=== PATIENT | female | born 1940 | race Caucasian/White ===

== ENCOUNTER 2018-07-04 22:29 | Inpatient (IN) | payer MEDICARE, OTHER ==
[~2018-07-04] VITALS: Ht 165.1 cm; Wt 144.7 kg
--- OUTSIDE RECORDS SUMMARY | ~2018-07-04 | XMS | Clinical Summary ---
Demographics + + + | Address | [id number] | | | [place] [address] | + + + | Home Phone | | + + + | Preferred Language | Unknown | + + + | Marital Status | Single | + + + | Restorationist Affiliation | [id number] | + + + | Race | Unknown | + + + | Ethnic Group | Unknown | + + + Author + + + | Author | [facility] | | | and [place] | + + + | Organization | [facility] | | | and [place] | + + + | Address | Unknown | + + + | Phone | Unavailable | + + + Support + + +---------+ + | Name | Relationship | Address | Phone | + + +---------+ + | Cahndan Monaco | ECON | Unknown | | + + +---------+ + | RennerJuan markham | ECON | Unknown | | + + +---------+ + | Fabrice Monaco | ECON | Unknown | | + + +---------+ + Care Team Providers + +------+ + | Care Recreation Adviser Name | Role | Phone | + +------+ + | Marissa Leonard MD | PP | | + +------+ + Allergies + + + + + + | Active Allergy | Reactions | Severity | Noted | Comments | | | | | Date | | + + + + + + | Codeine | Nausea And Vomiting | | 11/11/19 | | | | | | 18 | | + + + + + + | Iodine | Other (See Comments) | | 11/11/19 | "I didn' t look | | | | | 18 | good". | + + + + + + | Penicillins | Hives | | 11/11/19 | | | | | | 18 | | + + + + + + | Sulfa Antibiotics | Other (See Comments) | | 11/11/19 | abd pain | | | | | 18 | | + + + + + + Medications + + + +---------+------+------+-------+ | Medication | Sig | Dispensed | Refills | Star | End | Statu | | | | | | t | Date | s | | | | | | Date | | | + + + +---------+------+------+-------+ | metFORMIN | Take 500 mg by mouth | | 0 | | | Activ | | (GLUCOPHAGE) 500 mg | daily (with | | | | | e | | tablet | breakfast). | | | | | | + + + +---------+------+------+-------+ | quinapril | Take by mouth | | 0 | | | Activ | | (ACCUPRIL) 20 mg | Daily. | | | | | e | | tablet | | | | | | | + + + +---------+------+------+-------+ | levothyroxine | Take 75 mcg by mouth | | 0 | | | Activ | | (SYNTHROID) 75 MCG | every morning | | | | | e | | tablet | (before breakfast). | | | | | | + + + +---------+------+------+-------+ | furosemide (LASIX) | Take by mouth | | 0 | | | Activ | | 20 mg tablet | Daily. | | | | | e | + + + +---------+------+------+-------+ | clindamycin | Take by mouth | | 0 | | | Activ | | (CLEOCIN) 75 mg | Daily. | | | | | e | | capsule | | | | | | | + + + +---------+------+------+-------+ | aMILoride | Take 5 mg by mouth | | 0 | | | Activ | | (MIDAMOR) 5 mg | Daily. | | | | | e | | tablet | | | | | | | + + + +---------+------+------+-------+ | Apixaban (ELIQUIS | Take by mouth. | | 0 | | | Activ | | PO) | | | | | | e | + + + +---------+------+------+-------+ Active Problems Not on file Social History + +-------+ +--------+ + | Tobacco Use | Types | Packs/Day | Years | Date | | | | | Used | | + +-------+ +--------+ + | Former Smoker | | | | Quit: 1980 | + +-------+ +--------+ + + +---+---+---+ | Smokeless Tobacco: | | | | | Never Used | | | | + +---+---+---+ + + +---------+ + | Alcohol Use | Drinks/We | oz/Week | Comments | | | ek | | | + + +---------+ + | Yes | 14 | 8.4 | | | | Shots of | | | | | liquor | | | + + +---------+ + + + + | Sex Assigned at | Date Recorded | | | | + + + | Not on file | | + + + + + + + | Job Start Date | Occupation | Industry | + + + + | Not on file | Not on file | Not on file | + + + + + + + + | Travel History | Travel Start | Travel End | + + + + + + | No recent travel history available. | + + Last Filed Vital Signs + + + + | Vital Sign | Reading | Time Taken | + + + + | Blood Pressure | 132/69 | 11/10/2017 1730 PDT | + + + + | Pulse | 100 | 11/10/2017 1730 PDT | + + + + | Temperature | - | - | + + + + | Respiratory Rate | 21 | 11/10/20171729 PDT | + + + + | Oxygen Saturation | 94% | 11/10/20171729 PDT | + + + + | Inhaled Oxygen | - | - | | Concentration | | | + + + + | Weight | 160.1 kg (353 lb) | 11/10/20171503 PDT | + + + + | Height | 160 cm (5' 3") | 11/10/20171503 PDT | + + + + | Body Mass Index | 62.53 | 11/10/20171503 PDT | + + + + Plan of Treatment + + + + + | Health Maintenance | Due Date | Last Done | Comments | + + + + + | Vaccine: | | | | | Dtap/Tdap/Td (1 - | 9 | | | | Tdap) | | | | + + + + + | Vaccine: Zoster (1 | | | | | of 2) | 0 | | | + + + + + | Vaccine: | | | | | Pneumococcal 65+ | 5 | | | | Low/Medium Risk (1 | | | | | of 2 - PCV13) | | | | + + + + + | Adult Annual | | | | | Wellness Visit | 8 | | | + + + + + | Vaccine: Influenza | | | | | (Season Ended) | 9 | | | + + + + + Results Not on filefrom Last 3 Months Insurance + +--------+ +--------+ +---------+--------+ | Payer | Benefi | Subscriber | Effect | Phone | Address | Type | | | t Plan | ID | lang | | | | | | / | | Dates | | | | | | Group | | | | | | + +--------+ +--------+ +---------+--------+ | MEDICARE | MEDICA | [id number] | | [phone] | | Medica | | | RE | | 005-Pr | 5 | | re | | | PART A | | esent | | | | | | AND B | | | | | | + +--------+ +--------+ +---------+--------+ | INDIVIDUAL ASSURANCE | INDIVI | [id number] | | | | Indemn | | COMPANY | DUAL | | 016-Pr | | | ity | | | ASSURA | | esent | | | | | | NCE CO | | | | | | | | MDCR | | | | | | | | SUPPL | | | | | | + +--------+ +--------+ +---------+--------+ + +--------+ +--------+ + + | Guarantor Name | Accoun | Relation to | Date | Phone | Billing Address | | | t Type | Patient | of | | | | | | | | | | + +--------+ +--------+ + + | Amarilis Bryan | Person | Self [birth year] | [id number] | | | al/Fam | | 1940 | [phone] | [place] [address] | | | guille | | | 3 (Home) | | + +--------+ +--------+ + + Advance Directives Patient has advance care planning documents on file. For more information, please contact:[place] [address]
--- OUTSIDE RECORDS SUMMARY | ~2018-07-04 | XMS | Clinical Summary ---
Demographics + + + | Address | [id number] | | | [place] [address] | + + + | Home Phone | | + + + | Preferred Language | Unknown | + + + | Marital Status | Single | + + + | Sabianism Affiliation | 1009 | + + + | Race | Unknown | + + + | Ethnic Group | Unknown | + + + Author + + + | Author | [facility] | | | and [place] | + + + | Organization | [facility] | | | and [place] | + + + | Address | Unknown | + + + | Phone | Unavailable | + + + Support + + +---------+ + | Name | Relationship | Address | Phone | + + +---------+ + | Chandan Monaco | ECON | Unknown | | + + +---------+ + | RennerJuan markham | ECON | Unknown | | + + +---------+ + | Fabrice Monaco | ECON | Unknown | | + + +---------+ + Care Team Providers + +------+ + | Care Dicer Operator Name | Role | Phone | + [...] +--------+ +---------+--------+ | MEDICARE | MEDICA | [id number] | | [phone] | | Medica | | | RE | | 005-Pr | 5 | | re | | | PART A | | esent | | | | | | AND B | | | | | | + +--------+ +--------+ +---------+--------+ | INDIVIDUAL ASSURANCE | INDIVI | [id number] | | | | Indemn | | [...] | Self | [birth year] | [address]ANK [id number] AUDIOLOGY TECHNICIAN | | | al/Fam | | 1940 | [phone] | [place] [address] | | | guille | | | 3 (Home) | | + +--------+ +--------+ + + Advance Directives Patient has advance care planning documents on file. For more information, please contact:[facility] [place] [address]
--- OUTSIDE RECORDS SUMMARY | ~2018-07-04 | XMS | Clinical Summary ---
Demographics + + + | Address | [address] | | | [place] [address] | + + + | Home Phone | | + + + | Preferred Language | Unknown | + + + | Marital Status | | + + + | Latter Day Affiliation | Unknown | + + + | Race | Unknown | + + + | Ethnic Group | Unknown | + + + Author + + + | Author | [facility] | + + + | Organization | [id number] | + + + | Address | Unknown | + + + | Phone | Unavailable | + + + Support + + +---------+ + | Name | Relationship | Address | Phone | + + +---------+ + | Fabrice Bryan | ECON | Unknown | | + + +---------+ + | Juan Renner | ECON | Unknown | | + + +---------+ + Care Team Providers + +------+ + | Care Repair Servicer Name | Role | Phone | + +------+ + | Marissa Smith PA-C | PP | Unavailable | + +------+ + Allergies + + + + + + | Active Allergy | Reactions | Severity | Noted | Comments | | | | | Date | | + + + + + + | Bee Venom | Swelling | Medium | 10/14/19 | | | | | | 14 | | + + + + + + | Codeine | Nausea and Vomiting | Low | 10/14/19 | | | | | | 14 | | + + + + + + | Penicillins | Swelling | Medium | 10/14/19 | | | | | | 14 | | + + + + + + | Propafenone | Other (See Comments) | Medium | 09/10/19 | sweating | | | | | 17 | | + + + + + + | Sulfa Antibiotics | Nausea Only | Low | 01/27/20 | | | | | | 14 | | + + + + + + Current Medications + + +-------+---------+------+------+-------+ | Prescription | Sig. | Disp. | Refills | Star | End | Statu | | | | | | t | Date | s | | | | | | Date | | | + + +-------+---------+------+------+-------+ | tizanidine | Take 4 mg by mouth | | | | | Activ | | (ZANAFLEX) 4 MG | nightly. | | | | | e | | capsule | | | | | | | + + +-------+---------+------+------+-------+ | quinapril | Take 20 mg by mouth | | | | | Activ | | (ACCUPRIL) 20 MG | nightly. | | | | | e | | tablet | | | | | | | + + +-------+---------+------+------+-------+ | levothyroxine | Take 75 mcg by mouth | | | | | Activ | | (SYNTHROID) 75 MCG | every morning | | | | | e | | tablet | before breakfast. | | | | | | + + +-------+---------+------+------+-------+ | metFORMIN | Take 500 mg by mouth | | | | | Activ | | (GLUCOPHAGE) 500 MG | daily. | | | | | e | | tablet | | | | | | | + + +-------+---------+------+------+-------+ | amLODIPine | Take 10 mg by mouth | | | | | Activ | | (NORVASC) 10 MG | daily. | | | | | e | | tablet | | | | | | | + + +-------+---------+------+------+-------+ | nitroGLYCERIN | Place 0.4 mg under | | | | | Activ | | (NITROSTAT) 0.4 MG | the tongue every 5 | | | | | e | | SL tablet | (five) minutes as | | | | | | | | needed for Chest | | | | | | | | pain. | | | | | | + + +-------+---------+------+------+-------+ | polyethylene | Take 17 g by mouth | | | | | Activ | | glycol (GLYCOLAX) | daily. | | | | | e | | packet | | | | | | | + + +-------+---------+------+------+-------+ | potassium chloride | Take 20 mEq by mouth | | | | | Activ | | (KLOR-CON) 20 MEQ | 2 (two) times | | | | | e | | packet | daily. | | | | | | + + +-------+---------+------+------+-------+ | apixaban (ELIQUIS) | Take 5 mg by mouth 2 | | | | | Activ | | 5 MG tablet | (two) times daily. | | | | | e | + + +-------+---------+------+------+-------+ | furosemide (LASIX) | Take 40 mg by mouth | | | | | Activ | | 40 MG tablet | 2 (two) times daily. | | | | | e | + + +-------+---------+------+------+-------+ | spironolactone | Take 25 mg by mouth | | | | | Activ | | (ALDACTONE) 25 MG | daily. | | | | | e | | tablet | | | | | | | + + +-------+---------+------+------+-------+ Active Problems + + + | Problem | Noted Date | + + + | Atrial fibrillation (HCC) | 10/13/2013 | + + + + + | Last Assessment & Plan: Atrial fibrillation. 75yo WF, with | | atrial fibrillation, apparently did not tolerate the Eliquis, | | refuses to be on warfarin or aspirin. She did not tolerate the | | propafenone. Currently on no antiarrhythmics, no | | anticoagulation, no antiplatelet agents. She reports generalized | | weakness, extremely poor balance, most the time she is in a | | wheelchair. Since last seen, one year ago, no surgical | | procedures or hospitalizations. Tolerating current medications. | | She requests no change in therapy. Has upcoming visit with PCP, | | labs anticipated.Last Cath: naLast Echo, 11/22/2013: TDS, LVEF | | grossly NML, "some degree of MT/TR".Last Stress Test: naECG, | | 11/24/2013 ([facility]): A fib, 94bp, PRWP, diffuse non-spec | | ST-T changes. | + + + + + | Hypertension | 10/13/2013 | + + + + + | Last Assessment & Plan: Hypertension, controlled, continue | | current meds at current dose (amlodipine, enalapril, metoprolol). | + + + + + | Diabetes mellitus, type 2 | 10/13/2013 | + + + + + | Last Assessment & Plan: DM II, managed by PCP. | + + + +---+ | Chronic pain | | + +---+ + + | Overview: chronic back pain, wheelchair bound | + + + +---+ | Hyperlipidemia | | + +---+ | Sleep apnea | | + +---+ Family History + + +------+ + | Medical History | Relation | Name | Comments | + + +------+ + | Cancer | Brother | | | + + +------+ + | Coronary art dis | Father | | NC in his 40s | + + +------+ + | Heart defect | Father | | | + + +------+ + | Diabetes type II | Mother | | | + + +------+ + | Heart disease | Mother | | unknown type | + + +------+ + | Hypertension | Paternal | | | | | Grandfath | | | | | er | | | + + +------+ + | Stroke | Paternal | | | | | Grandfath | | | | | er | | | + + +------+ + | Heart defect | Paternal | | | | | Grandmoth | | | | | er | | | + + +------+ + | Heart disease | Sister | | | + + +------+ + + +------+ + + | Relation | Name | Status | Comments | + +------+ + + | Brother | | | | + +------+ + + | Father | | | heart disease | | | | (Age | | | | | 66) | | + +------+ + + | Mother | | | DMII,heart disease | | | | (Age | | | | | 73) | | + +------+ + + | Paternal Grandfather | | | | + +------+ + + | Paternal Grandmother | | | | + +------+ + + | Sister | | Alive | | + +------+ + + Social History + + + +--------+ + | Tobacco Use | Types | Packs/Day | Years | Date | | | | | Used | | + + + +--------+ + | Former Smoker | Cigarettes | 0.5 | 5 | Quit: 03/30/1971 | + + + +--------+ + + +---+---+---+ | Smokeless Tobacco: | | | | | Never Used | | | | + +---+---+---+ + + +---------+ + | Alcohol Use | Drinks/We | oz/Week | Comments | | | ek | | | + + +---------+ + | Yes | 0 | 0.0 | 1-2 daily | | | Standard | | | | | drinks or | | | | | | | | | | equivalen | | | | | t | | | + + +---------+ + + + + | Sex Assigned at | Date Recorded | | | | + + + | Not on file | | + + + Last Filed Vital Signs + + + + | Vital Sign | Reading | Time Taken | + + + + | Blood Pressure | 104/76 | 09/09/2016 1:07 PM PDT | + + + + | Pulse | 85 | 09/09/2016 1:07 PM PDT | + + + + | Temperature | - | - | + + + + | Respiratory Rate | 17 | 09/05/2015 2:16 PM PDT | + + + + | Oxygen Saturation | 99% | 09/09/2016 1:07 PM PDT | + + + + | Inhaled Oxygen | - | - | | Concentration | | | + + + + | Weight | 144.7 kg (319 lb) | 09/09/2016 1:07 PM PDT | + + + + | Height | 160 cm (5' 3") | 09/09/2016 1:07 PM PDT | + + + + | Body Mass Index | 56.51 | 09/09/2016 1:07 PM PDT | + + + + Plan of Treatment + + + + + | Health Maintenance | Due Date | Last Done | Comments | + + + + + | Diabetic Eye Exam | | | | | | 0 | | | + + + + + | Diabetic Foot Exam | | | | | | 0 | | | + + + + + | Microalbumin | | | | | Screening | 0 | | | + + + + + | Vaccine: | | | | | Dtap/Tdap/Td (1 - | 9 | | | | Tdap) | | | | + + + + + | Vaccine: Zoster (1 | | | | | of 2) | 0 | | | + + + + + | DEXA SCAN SCREENING | | | | | | 5 | | | + + + + + | Vaccine: | | | | | Pneumococcal 65+ | 5 | | | | Low/Medium Risk (1 | | | | | of 2 - PCV13) | | | | + + + + + | Hemoglobin A1c | | 10/07/2012, 04/06/2012 | | | | 3 | | | + + + + + | Vaccine: Influenza | | | | | (Season Ended) | 9 | | | + + + + + Results Not on filefrom Last 3 Months Insurance + +--------+ +------+-------+ + | Payer | Benefi | Subscriber | Type | Phone | Address | | | t Plan | ID | | | | | | / | | | | | | | Group | | | | | + +--------+ +------+-------+ + | MEDICARE | MEDICA | [id number] | | | [address] | | | RE | | | | [place] [id number] | | | IP-OP | | | | | + +--------+ +------+-------+ + | COMMERCIAL OTHER | COMMER | [id number] | | | | | | CIAL | | | | | | | GENERI | | | | | | | C PLAN | | | | | + +--------+ +------+-------+ + + +--------+ +--------+ + + | Guarantor Name | Accoun | Relation to | Date | Phone | Billing Address | | | t Type | Patient | of | | | | | | | | | | + +--------+ +--------+ + + | AMARILIS BRYAN | Person | Self [birth year] | Home: | [address] Charging Machine Operator | | | al/Fam | | 1940 | [phone] [place] [address] | | | guille | | | [phone] | | + +--------+ +--------+ + +
--- OUTSIDE RECORDS SUMMARY | ~2018-07-04 | XMS | Clinical Summary ---
Demographics + + + | Address | [address] | | | [place] [address] | + + + | Home Phone | | + + + | Preferred Language | Unknown | + + + | Marital Status | | + + + | Advent Affiliation | Unknown | + + + | Race | Unknown | + + + | Ethnic Group | Unknown | + + + Author + + + | Author | [facility] | + + + | Organization | [facility] | + + + | Address [...] Team Providers + +------+ + | Care Barback Name | Role | Phone | + [...] Coronary art dis | Father | | DE in his 40s | + + +------+ [...] +------+-------+ + | MEDICARE | MEDICA | [id number] | | | [address] | | | RE | | | | [place] [phone] | | | IP-OP | | | | | + +--------+ +------+-------+ + | COMMERCIAL OTHER | COMMER | [id number] | | | | | | CIAL [...] | Home: | [address] Golf Club Manager | | | al/Fam | | 1940 | [phone] | [place] [address] | | | guille | | | [phone] | | + +--------+ +--------+ + +
[~2018-07-04 22:29] MED LIST: AMLODIPINE BESY10 MG PO; CELECOXIB100 MG PO; ELIQUIS5 MG PO; FUROSEMIDE40 MG PO; KLOR-CON M2020 MEQ PO; LEVOTHYROXINE75 MCG PO; METFORMIN HCL500 M1 PO; METOPROLOL SUCC50 MG PO; MIRALAX17 GM PO; QUINAPRIL HCL20 MG PO; SPIRONOLACTONE25 MG PO; TIZANIDINE HCL4 MG PO; TRAMADOL HCL50 MG PO
--- OUTSIDE RECORDS SUMMARY | 2018-07-04 22:32 | XMS ---
PreManage Notification: MAHAD VILLANUEVA Security Tank Driver Events No recent Security Events currently on file CRITERIA MET - ROBI CARE PROVIDERS Nik García MD Primary Care Current PHONE: [phone] orkeisha Case or Australian Rules Footballer Current PHONE: Unknown Maxine has no Care Guidelines for this patient. Angus VISIT COUNT (12 MO.) 1 Garfield Rodriguez TOTAL 2 NOTE: Visits indicate total known visits. ED/UCC VISIT TRACKING (12 MO.) 07/04/2018 22:30 [facility] TYPE: Emergency COMPLAINT: - FALL 11/10/2017 14:59 [facility] [place] TYPE: Emergency DIAGNOSES: - Shortness of breath - Abnormal results of thyroid function studies - Chest Pain INPATIENT VISIT TRACKING (12 MO.) No inpatient visits to display in this time frame [id number]
--- NOTE | 2018-07-05 01:49 | NUR ---
RECEIVED REPORT FROM ABIODUN MONAHAN RN. AWAITING PT'S ARRIVAL TO THE UNIT.
--- NOTE | 2018-07-05 02:15 | NUR ---
PT ARRIVED TO THE UNIT FROM THE ED VIA STRETCHER. PT TRANSFERED VIA 4PA TO HOSPITAL BED. CHURCH MUSICIAN COMPLETING PT'S INITIAL ADMIT. JUNE LYNNETTE IN ROOM TO COLLECT VS.
--- NOTE | 2018-07-05 02:38 | NUR ---
PATIENT ARRIVED TO THE FLOOR VIA STRETCHER. PATIENT MOVED FROM THE STRETCHER TO THE HOSPITAL BED WITH ASSISTANCE FROM STAFF. PATIENT HAS RIOS IN PLACE. PATIENTS ADMISSION COMPLETED. PATIENTS SKIN CLEANED AND NYSTATIN APPLED. PATIENT HAS MULTIPLE SKIN TEARS. PATIENT IS AAOX3. PATIENT ORIENTED TO ROOM, FLOOR, AND CALL LIGHT. PATIENT DENIES ANY COMMENTS, QUESTIONS, OR CONCERNS. PATIENT DENIES ANY NEEDS. CALL LIGHT IN REACH.
--- NOTE | 2018-07-05 03:15 | NUR ---
ASSESSMENT COMPLETE. WHEN WALKING INTO ROOM, PT RESTING IN BED, EYES CLOSED, RR WNL. NO FACIAL GRIMACING OR CRYING NOTED. PT THEN REPORTS 9/10 PAIN. THIS RN DISCUSSED WITH PT OF PAIN MEDICATION OPTIONS AND THAT NORCO WAS NOT YET AVAILABLE. PT VERBALIZED UNDERSTANDING. LACERATION TO RIGHT LE COVERED WITH COBAN PRESSURIZED DRESSING PER REPORT. DRY DRAINAGE NOTED, WILL MONITOR. CMS INTACT. IV FLUID BRIDGE ORDERS HUNG BY HERBICIDE SPRAYER. SITE WNL. PT A/O, DENIES FURTHER NEEDS. CALL LIGHT IN REACH.
--- NOTE | 2018-07-05 05:13 | NUR ---
PT ARRIVED TO THE UNIT FROM THE ED AROUND 0200. PT ON REGULAR DIET, TOLERATING WELL, NO NAUSEA THIS SHIFT. BT ACTIVE. VSS, CPOX IN PLACE. 2LNC NOTED. DRESSING TO RIGHT LE R/T LACERATION. CMS INTACT. PT A/O, PAIN CONTROLLED WITH PRN NORCO. RIOS IN PLACE, PT VOIDING QS. NO BM THIS SHIFT. USES CALL LIGHT APPROPERIATELY.
--- NOTE | 2018-07-05 05:53 | NUR ---
pt reports 8/10 pain. 2 prn norco given. pt denies further needs, call light in reach. 2lnc in place, o2 sat in low 94, hr 81.
--- NOTE | 2018-07-05 06:30 | NUR ---
PT'S 4HR UO SHOULD BE 360/4HRS PER PT'S WEIGHT. PT HAD ONLY [address] OWENS AWARE. NO NEW ORDERS.
--- NOTE | 2018-07-05 07:31 | NUR ---
REPORT RECEIVED FROM COLLEEN CHENEY. PT RESTING IN BED WITH EYES CLOSED, RESPIRATIONS EVEN AND UNLABORED. O2 SATURATION 93% ON 2L O2 BY NC. HR = 69. BED RAILS UP. CALL LIGHT WITHIN REACH.
--- NOTE | 2018-07-05 09:38 | NUR ---
MORNING ASSESSMETN AND MEDICATIONS DUE. THIS RN TO BEDSIDE. PT REPORST 07/07 PAIN AND STATES "ITS MUCH BETTER THAN LAST NIGHT." PT DENIES NAUSEA. ASSESSMENT DONE. DRESSING IN PLACE OVER RIGHT LOWER LEG WOUND. LEGS FLORES, PEELING, AND EDEMA NOTED. NYSTATIN POWDER APPLIED UNDER FOLDS AND BREASTS. PAIN MEDICATION GIVEN (SEE MAR). PT REAMINS ON 2L O2 BY NC WITH 92-95% SATURATION. WATER REFILLED. PIV IS A FIELD START, WILL CONSULT MD. CHURCH AT BEDSIDE FOR VITALS. BED RAILS UP. CALL LIGHT WITHIN REACH.
--- NOTE | 2018-07-05 10:16 | NUR ---
THIS RN TO ROOM FOR ROUNDS WITH MD. ORDERS GIVEN TO DC'D IV FLUIDS. PIV SALINE LOCKED. NEW ORDERS PLACED. PT DENIES ADIDITONAL REQUESTS OR COMPLAINTS AT THIS TIME. BED RAILS UP. CALL LIGHT WITHIN REACH.
--- NOTE | 2018-07-05 11:02 | NUR ---
PTS FAMILY GIGI (SON) AND DAUGHTER IN LAW (OSWALD) CALLED AND UPDATED PER PT REQUEST BOTH GIGI AND OSWALD STATE THEIR QUESTIONS HAVE BEEN ANSWERED. GIGI PLANS TO COME TO VISIT PT TOMORROW.
--- NOTE | 2018-07-05 12:24 | NUR ---
NOON ASSESSMENT AND MEDICAITONS DUE. THIS RN TO BEDSIDE. TELE PLACED. PT TRANSFERED TO BARIATRIC BED WITH 4PA AND NUNU LIFT. MEDICATIONS GIVEN. SKIN ASSESSED. MULTIPLE REDDENED AREAS ON BACK, BUTTOX AND BACK OF THIGHS. ALLEVYN APPLIED TO OPEN SOAR ON LEFT UPPER THIGH AND RIGHT ELBOW. NYSTATIN APPLED TO FOLDS IN BACK WITH CRACKED AND REDDENED SKIN. PIV LEAKING, DC'D PER PROTOCOL GAUZE AND COBAN APPLIED. NEW PIV STARTED PER PROTOCOL IN LEFT HAND, INFUSING MAGNESIUM AT THIS TIME. COMPLETE BED BATH AND SHAMPOO GIVEN BY ETL BI DEVELOPER. PT RESTING IN NEW BED. BED RAILS UP. CALL LIGHT WITHIN REACH.
--- NOTE | 2018-07-05 13:22 | NUR ---
PUMP ALARMING, INFUSION AND FLUSH COMPLETE. PIV ASSESSED, WNL. PIV SALINE LOCKED. ALCOHOL CAPS APPLIED. PT RESTING IN BED. NO REQUESTS OR COMPLAINTS AT THIS TIME. BED RAILS UP. CALL LIGHT WITHIN REACH.
[2018-07-05] MEDS ORDERED: LEVOTHYROXINE100 MCG PO (13:47)
--- NOTE | 2018-07-05 13:50 | NUR ---
IN TALKING TO THE PT SHE STATES THAT SHE DOESN'T TAKE SHOWERS OR BATHES (I JUST BOUGHT STUFF FOR A BRAND NEW SHOWER. I HAVEN'T BEEN ABLE TO TAKE ONE IN A LONG TIME. MY FRIEND JUST WASHES ME. I DON'T DO MUCH, SIT IN MY CHAIR AND THEN GO TO THE BATHROOM THATS IT. I GUESS I CAN GO FOR A LITTLE WHILE AT [facility] AND IF I DON'T LIKE IT I CAN MOVE RIGHT." ASSURED HER THAT THIS IS ONE OF THE OPTIONS SHE HAS.
--- NOTE | 2018-07-05 13:53 | NUR ---
ULTRASOUND TECHNITIAN ARRIVED FOR ECHO. PT POSITIONED FOR ULTRASOUND. PAIN MEDICATION GIVEN FOR 7/10 PAIN. NO ADDITIONAL REQUESTS OR COMPLAINTS AT THIS TIME. CALL LIGHT WITHIN REACH.
--- NOTE | 2018-07-05 14:44 | NUR ---
Per pharmacy records, patient has been taking levothyroxine 100mcg, instead of 75mcg, since at least Dec 2017
--- NOTE | 2018-07-05 15:02 | NUR ---
THIS RN TO ROOM TO CHECK ON PT. PT REPORTS 6/10 PAIN IN HER RIGHT LEG AND LEFT HEEL. LEFT HEEL ELEVATED ON A PILLOW, PT STATES "THAT FEELS MUCH BETTER." WARM BLANKET PROVIDED. LASIX GIVEN. STRAP MAKING MACHINE OPERATOR AT BEDSIDE TO COMB AND FIX PTS HAIR. NO ADDITIONAL REQUESTS OR COMPLAINTS AT THIS TIME. CALL LIGHT WITHIN REACH.
[2018-07-05] MEDS ORDERED: LASIX40 MG PO (16:15)
--- NOTE | 2018-07-05 16:25 | NUR ---
Medications reconciled using pharmacy records and patient interview. Patient has not been taking her furosemide due to toileting difficulties
--- NOTE | 2018-07-05 16:40 | NUR ---
AFTERNOON ASSESSMENT AND MEDICATION DUE. THIS RN TO BEDSIDE. PT COMPLAINS OF 7/10 PAIN IN HER LOWER BACK. PT REPOSITIONED WITH NUNU LIFT. PT STATES "NOW I HAVE NO PAIN" BUT LATER RATES PAIN AT 6/10. PT STATES SHE IS COMFORTABLE "FOR NOW." WOUND CONSULT RN TO BEDSIDE. PT REFUSES WOUND CONSULT TODAY AND STATES WOUND CONSULT RN CAN COME BACK "MAYBE TOMORROW." ASSESSMENT DONE. EDEMA CONTINUES. HEART FAILURE EDUCATION DONE WITH PT AND PTS SIGNIFICANT OTHER. O2 SATURATION AT 95% ON ROOM AIR. TELE SHOWS IRREGULAR RHYTHEM. MEDICAITON GIVEN (SEE MAR). PT ENCORUAGED TO ORDER DINNER, PT STATES "I ONLY WANT A FRUIT PLATE AND CAKE." ORDER PLACED. BED RAILS UP. CALL LIGHT WITHIN REACH. SIGNIFICANT OTHER AT BEDSIDE.
--- NOTE | 2018-07-05 18:42 | NUR ---
PT CALL LIGHT ON. PT REQUESTS PAIN MEDICAITON FOR 8/10 PAIN IN RIGHT ANKLE AFTER THE X-RAY. SEE MAR FOR MEDICATION GIVEN. PT VISITING WITH FAMILY. PT LAUGHING AND TELLING STORIES. NO ADDITIONAL REQUESTS OR COMPLAINTS AT THIS TIME. BED RAILS UP. CALL LIGHT WITHIN REACH.
--- NOTE | 2018-07-05 18:47 | NUR ---
PT HERE FOR RIGHT FIBIAL FX AND LACERATION. NUNU LIFT TO BARIATRIC BED THIS SHIFT. CHF WORK UP DONE TODAY. PT PLACED ON 1600 ML FLUID RESTIRCTION, CBG CHECKS, SLIDING SCALE INSULIN, AND HEART HEALTHY DIET. PT REMAINS ON 2L O2 BY NC. CONTINIOUS PULSE OX IN PLACE, O2 SATURATIONS ABOVE 92% THIS SHIFT. FOELY CATHETER IN PLACE, CATHETER CARE DONE. IV LASIX THIS SHIFT. X-RAYS OF BLE TAKEN THIS SHIFT. MID LINE CONSULT PLACED. WOUND CONSULT PLACED, PT REFUSES WOUND CONSULT THIS SHIFT. WOUND CONSULT RN WILL RETURN TOMORROW. NEW PIV IN LEFT HAND. BOOT PLACED TO RIGHT LEG. PRN TRAMDOL GIVEN X2 THIS SHIFT. PRN NORCO DC'D. PT HAS YET TO USE CALL LIGHT.
--- NOTE | 2018-07-05 19:24 | NUR ---
IN ROOM FOR REPORT, PT IS AWAKE IN BED. SHE DENIES NEEDS AT THIS TIME. CALL LIGHT IS IN REACH.
--- NOTE | 2018-07-05 20:17 | NUR ---
PT REQUESTED MELATONIN SAYS SHE TAKES 10-20MG AT HOME. SPOKE WITH DR ROMAN BA FOR 3MG MELATONIN PRN. THAT IS THE MOST SHE CAN HAVE.
--- NOTE | 2018-07-05 21:00 | NUR ---
WAS TOLD THAT PT CALLED ASKING FOR HER SLEEPING PILL. STOPED BY PT'S ROOM TO ADVISE HER THAT SHE IS NEXT, BUT THIS RN IS BUSY WITH ANOTHER PATIENT AND WILL BE THERE SOON POSSIBLE. SHE SAID OK. CALL LIGHT IS CLOSE.
--- NOTE | 2018-07-05 22:05 | NUR ---
IN ROOM TO ASSESS PT AND ADMINISTER MEDICATIONS. COORDINATED THE TIME WITH REMARKETING REP TO MAKE SURE WE DO NOT UPSET THE PT BY COMING IN AND OUT. SHE WAS STILL UNHAPPY THAT WE WERE IN THE ROOM. VS WERE ENTERED AND BLOOD GLUCOSE WAS CHECKED. PT DENIED APPLICATION OF NYSTATIN AND WHEN ASKED ABOUT PAIN, NUMBNESS OR TINGLING SHE DENIED IT ALL. SHE SEEMED TO BE IN A BALTAZAR TO GET US OUT OF THE ROOM. THIS RN WAS ABLE TO AUSCULATE LUNGS ANTERIOR AND LATERAL BUT PT DID NOT WANT TO TRY TO MOVE. WAS ABLE TO VISUALIZE HER LEGS BUT PT DID NOT WANT HER RIGHT LEG "MESSED WITH". DID NOT SEE ANY DRAINAGE ON THE BED. PT DENIES NEEDS AND CALL LIGHT IS WITHIN REACH.
--- NOTE | 2018-07-06 00:21 | NUR ---
V/S AND I&O DONE AND CHARTED.
--- NOTE | 2018-07-06 00:39 | NUR ---
PT IS RESTING WITH EYES CLOSED, RESPIRATIONS ARE EVEN AND NONLABORED. CALL LIGHT IS CLOSE.
--- NOTE | 2018-07-06 01:26 | NUR ---
PT CALLED ABOUT NECK PAIN, SAYS SHE HAS NOT BEEN ABLE TO SLEEP. ADMINISTERED TRAMADOL AND PROVIDED A HEAT PACK. ALSO ADJUSTED HER PILLOW. SHE DENIES FURTHER NEEDS AT THIS TIME. CALL LIGHT IS WITHIN REACH.
--- NOTE | 2018-07-06 03:44 | NUR ---
PT IS RESTING WITH EYES CLOSED, RESPIRATIONS ARE EVEN AND NONLABORED. CALL LIGHT IS CLOSE.
--- NOTE | 2018-07-06 06:59 | NUR ---
ADMINISTERED THYROID MEDICATION. PT WOULD LIKE ANOTHER WARM PACK FOR NECK. DENIES FURTHER NEEDS AND CALL LIGHT IS CLSOE.
--- NOTE | 2018-07-06 07:38 | NUR ---
REPORT RECEIVED FROM COLLEEN MELO. PT RESTING WITH EYES CLOSED, RESPIRATIONS EVEN AND UNLABORED. O2 BY NC ON AT 2L, O2 SATURATION 95%. TELE READING IRREGULAR SINUS RHYTHEM, HR = 86. RIOS DRAINING TO GRAVITY. BED RAILS UP. CALL LIGHT WITHIN REACH. PT ALLOWED TO REST AT THIS TIME.
--- NOTE | 2018-07-06 08:30 | NUR ---
THIS EDUCATION LIAISON OFFERED PATIENT AM CARE, PATIENT WASHED HANDS BUT REFUSED OTHER AM CARE. PATIENT REQUESTING TO SLEEP AND BE LEFT ALONE. RN NOTIFIED. CALL LIGHT IN REACH. NO OTHER NEEDS AT THIS TIME.
--- NOTE | 2018-07-06 09:24 | NUR ---
MORNING ASSESSMENT AND MEDICATION DUE. PT AWAKE AND RESTING IN BED. PT IRRITABLE. PT STATING "I NEVER GET ANY SLEEP. ALL YOU EVER DO IS TOURCHER ME." PT REFUSING ASSESSMENTS OF SKIN WOUND. PT OFFERED TO GET UP TO CHAIR. PT REFUSES. PT OFFERED REPOSITIONING IN BED. PT REFUSES. ASSESSMENT DONE. PT REPORTS 9/10 PAIN, SEE MAR FOR MEDICATION GIVEN. PT DENIES NAUSEA. O2 SATURATION 95% ON 2L O2 BY NC. PT DECLINES SHOWER AND BED BATH. MEDICATION GIVEN. HEART FAILURE EDUCATION ATTEMPTED, PT DECINES NEED AND STATES "I JUST WANT TO BE LEFT ALONE." PT ASKED IF THERE IS ANYTHING THE STAFF CAN DO TO MAKE HER MORE COMFORTABLE, PT STATES "NO." RIGHT LEG WOUND ASSESSED, NEW DRAINAGE NOTED TO ANTERIOR PART OF CALF GAUZE AND COBAN DRESSING. BOOT IN PLACE. PT ASSISTED WITH SITTING UP FOR BREAKFAST. PT DEMONSTRATES USE OF CORNET AND REACHES 750 ON INCENTIVE SPROMETER. PTS BED ADJUSTED TO CHAIR POSITION. BED RAILS UP. CALL LIGHT WITHIN REACH.
--- NOTE | 2018-07-06 09:36 | NUR ---
GARLAND MACHINE OPERATOR INFORMES THIS RN THAT [facility]U CALLED REGARDING PTS TELE. PT HAS RUN OF SHAHRZAD. AWARE. TELE CURRENTLY IN IRREGULAR RHYTHEM.
--- NOTE | 2018-07-06 10:56 | NUR ---
THIS RN TO ROOM TO CHECK ON PT. PT REPORTS 12/10 PAIN IN KNEES. PT REPOSTIONED FOR COMFORT. PT REPORTS HEART BURN. MD INFORMED. NEW PAIN MEDICAITON ORDERS PLACED. MD STATES OK TO GIVEN ADDITIONAL TRAMADOL AT 4 HOUR AMELIA. INFOMRED OF NEW DRAINAGE FROM LEGS AND DRESSINGS. PLAN TO ASSESS DURING ROUNDS. PT STATES SHE HAD NO ADDITIONAL REQUESTS AT THIS TIME. CALL LIGHT WITHIN REACH.
--- NOTE | 2018-07-06 11:30 | NUR ---
THIS LINE HAUL OWNER OPERATOR AND ASSEMBLER CARBON BRUSHES ADRIANA ASSISTED PATIENT TO GET MORE COMFORTABLE WITH A HEAT PACK AND BY READJUSTING BED. RN IN ROOM. PATIENT CALL LIGHT IN REACH. NO OTHER NEEDS AT THIS TIME.
--- NOTE | 2018-07-06 13:00 | NUR ---
NOON ASSESSMENT AND MEDICATIONS DUE. THIS RN TO BEDSIDE. PT REPORTS 6/10 PAIN THAT "IS BETTER NOW." PT REFUSES REPOSTITIONING. PT REPORTS NASUEA AND HEARTBURN. PT REFUESE MAALOX BUT ACCEPTS ZOFRAN. SEE MAR FOR MEDICATION GIVEN. ASSESSMENT DONE. YELLOW DRAINAGE NOTED FROM LLE. OLD RED DRAINAGE NOTED ON RLE BANDAGE, MINIMAL DRAINAGE NOTED ON FOAM INSIDE OF BOOT. PT DECLINES LUNCH. PT DEMONSTRATES USE OF CORNET AND INCENTIVE SPIROMETER REACHING 750. TELE DC'D PER MD ORDER. MD ROUNDS AND WOUND CONSULT PLANED FOR 1400. PT UPDATED ON PLAN OF CARE. O2 SATURATION 96% ON 2L NC. NO ADDITIONAL REQUESTS OR COMPLAINTS AT THIS TIME. CALL LIGHT WITHIN REACH. BED RAILS UP.
--- NOTE | 2018-07-06 13:34 | NUR ---
PATIENT RESTING IN BED, EYES CLOSED, CALL LIGHT IN REACH. PATIENT REFUSED LUNCH. NO OTHER NEEDS AT THIS TIME.
--- NOTE | 2018-07-06 13:56 | EKG ---
[facility] [address] [facility] [place] [address] Signed Atrial fibrillation Low voltage QRS Cannot rule out Anterior infarct (cited on or before 15-AUG-2016) Abnormal ECG When compared with ECG of 15-AUG-2016 02:36, Questionable change in initial forces of Anterior leads Nonspecific T wave abnormality now evident in Inferior leads QT has shortened Confirmed by AWILDA OWENS MD ([id number]) on 07/06/2018 1:56:10 PM Electronically Signed By: AWILDA OWENS MD 07/06/18 1356 PATIENT NAME: MAHAD VILLANUEVA Electrocardiogram DATE OF : 40 PHYSICIAN: AWILDA OWENS MD REPORT #: [id number] REPORT IS CONFIDENTIAL AND NOT TO BE RELEASED WITHOUT AUTHORIZATION
--- NOTE | 2018-07-06 14:02 | NUR ---
PTS DAUGHTER IN LAW, OSWALD, CALLED FOR UPDATE. UDATED ON CURRENT PLAN OF CARE. OSWALD STATES HER QUESTIONS HAVE BEEN ANSWERED.
--- NOTE | 2018-07-06 14:15 | NUR ---
WOUND CONSULT RN, THIS RN AND CLOTH SHRINKING SUPERVISOR'S X2 TO BEDSIDE FOR EVALUATIONS. WOUNDS ASSESSED, CLEANED, AND NEW DRESSINGS APPLIED. COMPLETE BED BATH DONE. NEW NYSTATIN POWDER APPLIED. LINENS CHANGED.
--- NOTE | 2018-07-06 15:54 | NUR ---
AFTERNOON ASSESSMENT AND MEDICATIONS DUE. THIS RN TO BEDSIDE. FULL WOUND AND SKIN ASSESSMENT DONE WITH MD AND WOUND CONSULT RN. FULL ASSESSMENT DONE. PT REPORTS 7/10 PAIN WITH CARES. SEE MAR FOR MEDICATION GIVEN. CRACKERS AND CHEESE PROVIDED FOR PT. PT REPORTS NAUSEA AND SHOWS 50ML OF EMESIS AFTER DRINKING A FULL WATER BOTTLE. MD NOTIFED. NEW ORDERS PLACED. AWAITING PHARMACY VERIFY MEDICATION. PT RESTING IN BED. BED RAILS UP. CALL LIGHT WITHIN REACH.
--- NOTE | 2018-07-06 16:44 | NUR ---
MEDICATIONS DUE. THIS RN TO BEDSIDE. PT REPORTS NAUSEA HAS IMPROVED. MEDICAITONS GIVEN WITH APPLESAUCE. BED RAILS UP. CALL LIGHT WITHIN REACH. NO ADDITIONAL REQUESTS OR COMPLAINTS AT THIS TIME. KENJI (SIGNIFICANT OTHER) AT BEDSIDE.
--- NOTE | 2018-07-06 17:05 | NUR ---
LE [id number] WOUND CONSULT DONE. SEE PRIMARY NURSES ASSESSMENT. ASSISTED PRIMARY RN, TWO CHEMISTRY TECHNICAL OFFICER'S AND MD TO ROLE PT, ASSESS WOUNDS, CHANGE LINEN AND GIVE SPONGE BATHE.
--- NOTE | 2018-07-06 17:43 | NUR ---
PATIENT RESTING IN BED, FAMILY IN ROOM. PATIENT GIVEN WARM PACK FOR NECK. CALL LIGHT IN REACH. NO OTHER NEEDS AT THIS TIME.
--- NOTE | 2018-07-06 18:20 | NUR ---
THIS RN TO ROOM TO CHECK ON PT. APPLESAUCE PROVIDED REQUESTED. PT VISITING WITH FAMILY. NO ADDITIONAL REQUESTS OR COMPLAINTS. CALL LIGHT WITHIN REACH. FAMILY AT BEDSIDE.
--- NOTE | 2018-07-06 18:21 | NUR ---
PT HERE FOR R FIBILA FX AND LACERATION. CHF WORK UP ONGOING. HEART HEALTHY DIET WITH 1600ML FLUID RESTRICTION. PT HAS MINIMAL APPITITE TODAY, WILLING TO EAT APPLE SAUCE BUT REFUSES OTHER MEALS. PRN ZOFRAN AND PHENEGRAN GIVEN FOR NAUSEA. 1 EPISODE OF EMESIS. FULL WOUND CONSULT TODAY WITH DRESSING CHANGES BY ARNOL WOUND CONSULT RN. BED BATH TODAY. MIDLINE CONSULT YET TO OCCUR. FOELY CATHETER, QUANTITY SUFFICIENT. IV LASIX GIVEN THIS SHIFT. CPOX IN PLACE, PT MAINTING O2 SATURATIONS ABOVE 92% ON 2L O2 BY NC. TELE DC'D THIS SHIFT. BLOOD SUGAR CHECKS DC'D THIS SHIFT. DAILY PRAMOD. PT USES CALL LIGHT INCONSISTANTLY.
--- NOTE | 2018-07-06 18:59 | NUR ---
PT CALL LIGHT ON. PT REQUESTS PAIN MEDICAITON FOR 11/06 PAIN. SEE MAR FOR MEDICATION GIVEN. FRESH ICE WATER PROVIDED. PT REACHES 750 ON INCENTIVE SPIROMETER. BED RAILS UP. CALL LIGHT WITHIN REACH.
--- NOTE | 2018-07-06 19:00 | NUR ---
SHIFT REPORT RECEIVED. PATIENT RESTIND IN BED. FAMILY IN ROOM. PATIENT DENIES ANY NEEDS AT THIS TIME. WOULD LIKE HER MELATONIN WITH EVEN MEDS. CALL LIGHT IN REACH.
--- NOTE | 2018-07-06 21:00 | NUR ---
PATIENT PROVIDED WITH EVENING MEDICATIONS. PATIENT ALLOWED FOR NYSTATIN TO BE APPLIED AND WOUNDS ASSESSED. MULTIPLE ALYVENS NOTED TO BE INTACT. PATIENT IS ON 2L NC. DENIES FEELING SOB. LUNG SOUNDS ARE DIMINISHED. HR IRREGULAR, CMS INTACT. PATIENT REPORTS GOOD PAIN CONTROL AT THIS TIME. NO NAUSEA OR HEARTBURN. REPOSOITIONED FOR COMFORT. CALL LIGHT IN REACH.
--- NOTE | 2018-07-06 22:30 | NUR ---
ACCOMPANIED RT DANYA INTO ROOM TO ENCOUARGE PATIENT TO PERFORM HIS IS AND CPT. PATIENT WAS COMPLAINT WITH CARE. DENIES FURTHER NEEDS. CALL LIGHT IN REACH.
--- NOTE | 2018-07-07 00:15 | NUR ---
PATIENT APPEARS TO BE SLEEPING WELL. ALLOWED TO REST. RR 18. 2L NC IN PLACE. CALL LIGHT IN REACH.
--- NOTE | 2018-07-07 04:00 | NUR ---
WOKE PATIENT BRIEFLY. PATIENT DENIES ANY NEEDS. BLANCA ENCINASING FREELY. CALL LIGHT IN REACH.
--- NOTE | 2018-07-07 06:44 | NUR ---
PATIENT COMPLAINT WITH CARE THIS SHIFT. NYSTATIN APPLIED. DRESSINGS PLACED BY WOUND CARE NURSE INTACT. BLANCA FITZPATRICK QS URINE. LASIX PER ORDER. FLUID RESTRICTION. PATIENT REPOSITIONED FOR COMFORT. NUNU FOR OUT OF BED, NOT THIS SHIFT. BOOT ON RIGHT FOOT PER ORDER.
--- NOTE | 2018-07-07 07:57 | NUR ---
1730: Report recieved from Caty MACIAS. Pt resting in her bed and she appears in no distress at this time. Call light and personal items within reach.
--- NOTE | 2018-07-07 09:38 | NUR ---
PT LYING IN BED WITH NO COMPLAINTS OF PAIN AT THIS TIME. SHE REFUSED TO BE TURNED AND I WAS UNABLE TO SEE ALL OF HER DRESSINGS DUE TO THIS. THE PT STATES "THERE FINE". SAT IS 98% ON ROOM AIR AT THIS TIME.
--- NOTE | 2018-07-07 09:51 | NUR ---
PATIENT REQUESTED A SHAMPOO CAP AND WASHED FACE WITH WARM WASH CLOTH. CALL LIGHTIN REACH. NO FURTHER NEEDS AT THIS TIME.
--- NOTE | 2018-07-07 10:25 | NUR ---
NUTRITION CONSULT FOR NUTRITION EDUCATION FOR CHF. PATIENT REPORTS POOR APPETITE. SHE IS HARDLY EATING AT ALL. STATES SHE FEELS BLOATED AND NAUSEOUS BUT IS NOT VOMITING REGULARLY. SHE DOESN'T GET UP AND MOVE MUCH AT HOME AND NOW HAS A BROKEN LOWER LEG THAT LIMITS HER MOBILITY WHICH IS LIKELY PLAYING A ROLL WITH THE BLOATING ISSUES. I RECOMMENDED SHE TRY SOME ENSURE SO SHE IS AT LEAST GETTING SOME PROTEIN. IT IS NOTED SHE IS ON A FLUID RESTRICTION OF 1600 ML PER DAY. WE TALKED ABOUT HER INTAKE AT HOME AND SHE SAID "I HAVEN'T BEEN EATING." WHEN SHE DOES FEEL LIKE EATING IT MIGHT BE APPLESAUCE OR 1/2 PACKAGE OF RAMEN NOODLES WITH SHRIMP. SHE'LL SAVE THE OTHER HALF FOR LUNCH. I DID REMIND HER THAT THE FOODS SHE CHOOSES SHOULD BE LOWER IN SODIUM. HER SIGNIFICANT OTHER, KENJI, DOES THE COOKING AND GROCERY SHOPPING. SHE LIKELY WILL GO TO A LONG-TERM UPON DISCHARGE. WILL CONTINUE TO MONITOR FOR FURTHER EDUCATION NEEDS IF APPROPRIATE.
--- NOTE | 2018-07-07 10:43 | NUR ---
Pt called and complained of nausea. Pt medicated at this time as directed. Pt denies any pain at this time.
--- NOTE | 2018-07-07 11:36 | NUR ---
Pt denies any pain and states her nausea is now gone. Call velazquez remains within reach. Sat on 2L is 96%, o2 decreased to 1L and she remains on cont pulse ox.
--- NOTE | 2018-07-07 13:44 | NUR ---
PT LYING IN BED AND REFUSED TO BE TURNED AND WOULD NOT ALLOW ME TO VIEW ALL OF HER WOUND SITES DUE TO THIS. IMMOBILIZER BOOT REMAINS IN PLACE WITH GOOD CIRCULATION NOTED. PT ENCOURAGED TO KEEP HER LEGS ELEVATED FOR PAIN AND SWELLING. PT ALLOWED A SLIGHT BIT OF ELEVATION AT THIS TIME. PT ENCOURAGE TO CONTINUE USING HER IS WHICH SHE IS DOING AT THIS TIME.
--- NOTE | 2018-07-07 14:36 | NUR ---
PT IN BED, RATHER QUIET. SHE IS ALERT AND ORIENTED AND MENTIONED THAT SHE WANTED TO REST. SHE HAD JUST HAD PAIN MEDS, AND WAS DROWSY. EXTENDED A BLESSING, WILL FOLLOW NEEDED
--- NOTE | 2018-07-07 14:55 | NUR ---
Pt states her pain level has improved and is now at an acceptable level for her. I spoke with the pt about changing her dressing to her right lower leg again and she is now acceptable to the idea. She is having a PICC line placed at this time so it will be to follow.
--- NOTE | 2018-07-07 15:43 | NUR ---
ORDER RECEIVED FOR MIDLINE PLACEMENT ON THIS PATIENT. PATIENT'S EMR IS REVIEWED, DR. OWENS IS INTERVIEWED, PATIENT IS INTERVIEWED AND VERBAL INFORMED CONSENT IS OBTAINED. PATIENT REPORTS LIMITED ROM IN RIGHT SHOULDER AND WOULD PREFER FOR THIS MIDLINE TO BE PLACED ON HER LEFT SIDE. PIV IN LEFT HAND IS NOTED AND IS SALINE LOCKED. SITE RITE ULTRASOUND IS USED TO VISUALIZE VENOUS ANATOMY AND LEFT BASILIC VEIN IS NOTED TO BE LARGER THAN 8 WELSH. 4 WELSH, 20 CM MIDLINE IS INSERTED USING STERILE TECHNIQUE AND PATIENT TOLERATES THE PROCEDURE IN ITS ENTIRETY WELL. BED RAILS ARE RETURNED TO UP POSITION, CALL LIGHT IS WITHIN REACH AND EDNA, RN IS AT THE BEDSIDE WITH INDUSTRIAL SEWER FOR DRESSING CHANGES.
--- NOTE | 2018-07-07 16:12 | NUR ---
RIGHT LOWER LEG DRESSINGS ARE SOAKED THROUGH WITH SEROUS FLUID TO INCLUDE GETTING THE IMMOBILIZER BOOT WET. THE WOUND WAS CLEANED WITH WOUND WASH, JALIL APPLIED AND NEW ALLYXEN DRESSING APPLIED. THE WOUND MEASURES 14.5 CM LONG WITH SUTURES IN PLACE, THERE IS A SMALL AMONT OF SLOUGH NOTED ON THE RIGHT EDGE OF THE WOUND, THERE IS DRY FLAKY SKIN AROUND THE WOUND AND DOWN THE LEG. THE INSIDE OF THE BOOT WAS COVERED WITH A BLUE PAD AND THE BOOT WAS REAPPLIED. THE PT DID NOT WANT TO ALLOW A TURN TO SEE HER OTHER DRESSING SITES BUT ALLOWED ME TO SO. THE OTHER DRESSING ARE NOTED TO HAVE SOME SHADOWING BUT ARE NOT SOAKED THROUGH AND REMAIN IN PLACE.
--- NOTE | 2018-07-07 17:58 | NUR ---
Pt complains that her boot on her right foot feels that it is not on correctly. Boot and leg repositioned and the pt states that it is feeling better. CMS remains intact. Pt also repositioned in her bed at this time.
--- NOTE | 2018-07-07 18:24 | NUR ---
PICC LINE WAS CONFIRMED FOR USE BY AGUSTIN MACIAS. LEFT HAND IV WAS DC'D, TIP INTACT.
--- NOTE | 2018-07-07 19:00 | NUR ---
SHIFT REPORT RECIEVED. PATIENT RESTING IN BED. APPEARS TO BE SLEEPIING. WAKES EASILY TO VOICE. REQUEST HER FOOT BE REPOSITIONED. NO OTHER NEEDS AT THIS TIME. CALL LIGHT IN REACH.
--- NOTE | 2018-07-07 20:00 | NUR ---
SPOKE TO DR. SALDANA ABOUT PATIENT'S FREQUENTLY DRAINING WOUND ON RIGHT LOWER LEG. NEW ORDERS RECEIVED FOR A PRESSURE DRESSING. ORDER ENTERED BY THIS RN AND VERFIED VIA REPEAT BACK.
--- NOTE | 2018-07-07 21:30 | NUR ---
BOOT ON RIGHT FOOT REMOVED, DRESSING REMOVED. AREA CLEANED WITH WOUND MEDICARE BILLER AND GAUZE. WOUND HAS SUTURES, LARGE AMOUNTS OF SERIOUS DRAINAGE WITH SOME YELLOW SLOUGH EASILY REMOVED. AREA DRIED. MEPILEX APPLIED. ABD OVER THAT. WRAPPED CAST PADDING AND KERLEX FROM KNEE DOWN. COBAN OVER THIS. CMS INTACT IN RIGHT FOOT. PATIENT'S FOLDS CLEANED AND DRIED THROUGHLY. NYSTATIN APPLIED. DISPOSABLE PADS PLACED IN FOLDS TO ABSORB EXTRA MOISTURE. PATIENT TOLERATED WELL. REPOSITIONED IN BED. EVENING MEDS PROVIDED. PATIENT TOLERATING 1L NC. NO GI UPSET AT THIS TIME. ALLOWED TO REST. CALL LIGHT IN REACH.
--- NOTE | 2018-07-08 00:15 | NUR ---
PATIENT APPEARS COMFORTABLE. RR 20. 1L NC IN PLACE. CALL LIGHT IN REACH. CMS INTACT IN RIGHT FOOT.
--- NOTE | 2018-07-08 04:00 | NUR ---
PATIENT WOKE WHEN RN ENTERED ROOM. DENIES PAIN. FRESH WATER PROVIDED. CMS INTACT IN RIGHT FOOT. DRESSING CDI. O2 SAT 96% ON 1L NC.
--- NOTE | 2018-07-08 06:04 | NUR ---
PATIENT PROVIDED WITH MORNING MEDS. MIDLINE FLUSHES EASILY, RETURNS BLOOD. HEPA-LOCKED. PATIENT REPORTS PAIN 4/10 IN HER HAND. PRN MEDS PROVIDED. FLOORING HELPER IN ROOM TO ASSIST WITH REPOSITIONING AND VS. PATIENT DENIES FURTHER NEEDS.
--- NOTE | 2018-07-08 06:10 | NUR ---
PATIENT WAS ABLE TO REST THIS SHIFT WITH MINIMAL PAIN. BOOT ON RIGHT LEG DC PER DR. SALDANA DUE TO EXCESSIVE WOUND DRIANAGE INTO BAKER AND INCREASED RISK OF INFECTION. SEE NEW WOUND CARE ORDER. PATIENT TOLERATED 1L NC DURING THE NIGHT, GOAL TO TITRATE TO ROOM AIR. LUNGS ARE CLEAR. PATIENT'S FOLDS CLEANED WELL THIS SHIFT WITH NYSTATIN APPLIED AND PADS TO ABSORB MOISTURE. RIOS, OUTPUT QS. REPOSITION PRN. FLUID RESTRICTION. NO GI UPSET THIS SHIFT.
--- NOTE | 2018-07-08 06:13 | NUR ---
VITALS AND I&OS DONE AND CHARTED. BEDSIDE TABLE AND CALL LIGHT IN REACH. PT NEEDS NOTHING MORE AT THIS TIME.
--- NOTE | 2018-07-08 08:10 | NUR ---
PATIENT WAS A WAKE .REFUSED AND CARES AT THIS TIME.SAID SHE WOULD LIKE TO SLEEP. NO OTHERE NEEDS AT THIS TIME.
--- NOTE | 2018-07-08 08:47 | NUR ---
PATIENT TOOK ORAL MEDICATIONS THIS MORNING, IS REFUSING TO HAVE BREAKFAST. PATIENT DOES NOT WANT TO HAVE BED BATH AT THIS TIME, WILL TRY AGAIN LATER. PATIENT RATES RIGHT ANKLE PAIN 4/10 AND SCHEDULED TYLENOL GIVEN. PATIENT IMMEDIATELY BACK TO SLEEP AFTER ASSESSMENT, SAYS, "I'M JUST NOT A MORNING PERSON."
--- NOTE | 2018-07-08 11:03 | NUR ---
PATIENT GIVEN ORAL CARAFATE. PATIENT IS NOT INTERESTED IN ORDERING ANYTHING FOR LUNCH. PHYSICAL THERAPY IN TO TRY AND WORK WITH PATIENT AND DO BED EXERCISES. PATIENT IS RELUCTANT TO PARTICIPATE.
--- NOTE | 2018-07-08 13:09 | NUR ---
SPOKE WITH [facility] RN HOME CARE WHO STATES THEY HAVE BEDS AVAILABLE AND REQUESTS CLINICAL PACKET SENT FOR POSSIBLE ADMISSION. SPOKE WITH MARG[facility] SADDLE CUTTER, SHE WILL SEND CLINICAL PACKET TO [facility]. WILL CONTINUE TO FOLLOW.
--- NOTE | 2018-07-08 14:50 | NUR ---
DISCUSSED WITH PATIENT POSSIBLE DISCHARGE TO [place], PATIENT STATED THAT SHE DOES NOT WANT TO GO THERE. DISCUSSED [facility] AND [facility] FACILITIES AND PATIENT SAID, "THAT WOULD BE INCONVIENIENT FOR MY FAMILY." PATIENT ADVOCATING TO GO HOME WITH HOME WITH HOME HEALTH. LOAD OUT SUPERVISOR AWARE OF PATIENT SUGGESTIONS.
--- NOTE | 2018-07-08 16:22 | NUR ---
PATIENT HAS REFUSED MOST HOSPITAL INTERVENTIONS, PARTICIPATED MINIMALLY IN PHYSICAL THERAPY, HAS REFUSED TO EAT. PATIENT BECOMES NAUSEATED WHEN DISCUSSING DISCHARGE PLANS. PATIENT HAS TAKEN ALL OF HER SCHEDULED MEDICATIONS BUT REPORTS THAT THEY UPSET HER STOMACH.
--- NOTE | 2018-07-08 16:31 | NUR ---
SPOKE WITH PATIENT IN ROOM. SHE STATES SHE ISN'T SURE SHE WANTS TO GO TO CARE HOME. DISCUSSED REHAB PURPOSE. SHE STATES SHE IS WONDERING ABOUT GOING HOME. SHE STATES SHE HAS A FRIEND WHO LIVES THERE AND HE CAN HELP HER. SHE DOES ADMIT HE WORKS SENIOR NETWORK ARCHITECT. SHE STATES SHE ASKED HER PCP DANILO LUBIN FOR HELP SHE COULD NOT GET AROUND AT HOME AND WAS TOLD TO COME TO OFFICE. SHE STATES SHE COULDN'T GET THERE. SHE STATES THEN SHE BROKE HER LEG. SHE STATES "ITS ALL HER FAULT BECAUSE I TOLD HER I NEEDED HELP". WE DISCUSSED THAT ALL WE CAN DO NOW IS MOVE FORWARD OF HER NEXT PLAN. WE DISCUSSED THE REALITY OF BEING AT HOME ALONE WHEN SHE CAN'T PUT WEIGHT ON HER LEG. PATIENT DOES ADMIT THAT WOULD BE HARD. WE DISCUSSED THAT SHE HAS DAYS PER MEDICARE FOR REHAB CENTER PAID, AND WE DISCUSSED SHE CAN POSSIBLY LOOK AT MEDICAID COVERAGE IF SHE MET CRITERIA AFTER THAT FOR FURTHER REHAB OR IN-HOME CARE. WE DISCUSSED OPTIONS OF HIRING HELP HERSELF IF SHE HAS FUNDS TO DO SO. PHAMPLET GIVEN FOR HELPING HANDS IN-HOME CARE. WE ALSO DISCUSSED SHE CAN HIRE PRIVATE IN-HOME CAREGIVERS. SHE STATES SHE DID THAT ONCE AND "I HIRED A THEIF AND SHE STOLE MY JEWLERY". PATIENT STATES "THE PRESIDENT SAYS THAT MEDICARE WILL TAKE CARE OF US". EXPLAINED AGAIN THE MEDICARE RULES FOR COVERAGE AT THIS TIME. SHE STATES SHE WANTS TO THINK ABOUT IT AND TALK WITH HER FRIEND "KENJI". WE DISCUSSED IF SHE HAS FAMILY WHO COULD HELP HER, SHE STATES "THEY WORK". SHE STATES SHE DOESN'T WANT MEDICAID IF THEY ARE "GOING TO TAKE MY HOUSE, I WANT TO LEAVE IT TO MY KIDS". EXPLAINED MEDICAID RULES AND THAT SOME PAYBACK MIGHT HAPPEN WHEN ESTATE IS SETTLED SOMEDAY. PATIENT STATES SHE WANTS TO "THINK SOME MORE". WILL CONTINUE TO FOLLOW. STAFF UPDATED.
--- NOTE | 2018-07-08 17:36 | NUR ---
PATIENT REFUSED TO TAKE PO MEDICATIONS, STOMACH CONTINUES TO BE UPSET.
--- NOTE | 2018-07-08 20:57 | NUR ---
MEDICATED WITH SCHEDULED TYLENOL AND PT HAD EMESIS 5 MINUTES AFTERWARDS, NO MEDS NOTED ON GREEN BILE COLORED THICK EMESIS. MEDICATED WITH ULTRAM 100MG PO PER C/O ABD AND LEG PAIN 12/07. PHENERGAN 12.5MG IV GIVEN PER EMESIS, COOP WITH ASSESSMENT.
--- NOTE | 2018-07-08 23:00 | NUR ---
no further c/o emesis, resting. Legs elevatd in pillows. R leg covered with gauze and coban dressing, edematous. L leg edematous, thight, weeping serous drainage, elevated. Allevyn dressing over serveral bony areas of body. not wanting to repositione for assessments earlier. Midline IV line hep lock, flushes easily. Semi coop with assessments earlier too. Call light and fludis at bedside
--- NOTE | 2018-07-09 01:07 | NUR ---
PT RESTING, HOB ELEVATED, NO FURTHER C/O EMESIS AOR PAIN, LEGS ELEVATED WITH PILLOWS, COBAN R LEG, WEEPING L LEG. BOTH LEGS VERY EDEMATOUS 4+, THIGHT. FAINT BUT PALPABLE PULSES. F/C PATENT, DRAINING CLEAR YELLOW URINE. MIDLINE HEP LACK/PATENT. PT ON BARIATRIC BED, CALL LIGHT AND FLUIDS AT BEDSIDE
--- NOTE | 2018-07-09 04:00 | NUR ---
RESTING, EYES CLOSED, NO C/O PAIN, F/C PATENT, CALL LIGHT AT BEDSIDE
--- NOTE | 2018-07-09 04:49 | NUR ---
PT HAD SMALL AMOUNT OF GREEN BILE COLORED EMESIS EARLIER THIS SHIFT, PHENARGAN 12.5MG IV GIVEN, EFFECTIVE, WAS MEDICATED WITH SCHEDULED TYLENOL WHICH PT BLAMES FOR HER EMESIS. AND TRAMADOL FOR R LEG PAIN, EFFECTIVE. PT DECLINED TO HAVE THIS RN DO A SKIN ASSESSMENT FROM WAIT DOWN TO KNEES, R LEG EDEMATOUS 4+ THIGH EDEMA, COVERED WITH MATI WRAP AND KOBAN DRESSING, PULSES FAINT BUT PALPABLE. L LEG 4+THIGH PITTING EDEMA, WEAPING SEROUS DRAINAGE. ELEVATED WTIH PILLOWS, HAS ALLEVYN DRESSING R ELBOW AND BUTTOCKS. PT DECLINED TO BE TURNED. TOLERATED FLUIDS WELL. F/C PATGENT, DRAINING CLEAR YELLOW URINE
--- NOTE | 2018-07-09 07:34 | NUR ---
0715: Report recieved from Robina MACIAS.
--- NOTE | 2018-07-09 09:26 | NUR ---
PT REMAINS IN BED AND REFUSED TO BE TURNED FOR REPOSITIONING AND TO VIEW HER SKIN. RIGHT LOWER LEG DRESSING REAMINS ELEVATED WITH A DRY INTACT DRESSING. SKIN FOLDS CLEANED AND NYSTATIN APPLIED ORDERED. CALL GARCIA IS WITHIN REACH.
--- NOTE | 2018-07-09 12:10 | NUR ---
Pt sleeping at this time.
--- NOTE | 2018-07-09 13:15 | NUR ---
SPOKE AT LENGTH WITH PATIENT REGARDING DISCHARGE OPTIONS. DISCUSSED GOING TO SNF VS GOING HOME AND HIRING HELP. DISCUSSED APPLYING FOR STATE FUNDS IF NEEDED VS. HER BEING ABLE TO PAY FOR GAUGER CHIEF DELIVERY CARE IF NEEDED. DISCUSSED THAT SHE HAS NOT BEEN DOING WELL AT HOME PRIOR TO THIS INCIDENT. SHE STATES SHE KNOWS SHE NEEDS "A LOT OF HELP AND MY FAMILY AND MY FRIEND CAN'T BE THERE ALL THE TIME AND THEY SHOULDN'T HAVE TO BE". PATIENT TEARFUL. DISCUSSED THAT MEDICALLY SHE WILL BE READY TO DISCHARGE SOON AND WE WANT TO HELP HER DECIDE WHAT SHE WANTS. PATIENT ASKED MANY QUESTIONS, ANSWERED. PATIENT STATES SHE IS UNSURE HOW SHE WOULD GO HOME AND SHE REALIZED "I REALLY DON'T HAVE A CHOICE AND NEED TO GO TO THE REHAB". WE DISCUSSED THAT IT WOULD BE SAFER AND THAT SHE WILL NEED TO TALK WITH [facility] TO START PROCESS FOR FUNDING IF THIS IS POSSIBLE. SHE IS WILLING TO START THAT PROCESS. DISCUSSED THAT I WILL HAVE [facility] CONTACTED AND THEY WILL BE CONTACTING HER FOR DETAILS. SHE IS ACCEPTING OF THIS. PATIENT IS THANKFUL FOR THE HELP AND SHE STATES SHE FEELS VERY "HELPLESS RIGHT NOW". DISCUSSED WITH HER TO TAKE ONE DAY AT A TIME AND TO DO WHAT SHE CAN DAILY TO MOVE FORWARD. QUESTIONS ANSWERED. SPENT OVER 45 MIN WITH PATIENT. STAFF UPDATED. CALLED MARCEL MARQUEZ WHO CONTACTED [facility] AND THEY ARE GOING TO CONTACT PATIENT REGARDING ASSESSMENT PROCESS. STAFF UPDATED.
--- NOTE | 2018-07-09 13:16 | NUR ---
PT STATES HER PAIN IS NOW A 7/10 AND IS IN MANY LOCATIONS, PT MEDICATED ORDERED. RIGHT LOWER LEG DRESSING REMAINS CDI.
--- NOTE | 2018-07-09 14:11 | NUR ---
PT WAS TAKING HER MEDICATIONS AND SPIT ONE OF THE TYLENOL BACK UP. SHE STATES THAT IT WILL NOT STAY DOWN AND DECLINED TAKING THE SECOND ONE.
--- NOTE | 2018-07-09 14:19 | NUR ---
Pt is now allowing a bed bath. She declines to have me present as I was hoping to do a skin assessment. Another RN will be asked to check her skin.
--- NOTE | 2018-07-09 15:00 | NUR ---
FAXED CLINICALS TO TO [facility] FOR POSSIBLE ADMITTANCE. FAX CONFIRMATION RECEIVED.
--- NOTE | 2018-07-09 15:07 | NUR ---
PT REQUESTED FEMALE CAREGIVER ASSIST WITH BEDPAN AND BEDBATH. THIS RN ASSISTED PER COLLEEN BISHOP REQUEST. PT UNABLE TO HAVE BM ON BEDPAN, BUT DID PASS GAS. PT STATED THAT WAS NORMAL FOR HER. ASSISTED LYNNETTE SALDANA AND GUILLERMINA WITH BEDBATH. RN CHANGED ONE LARGE ALYVENT UNDER ABD PANNUS AND 2 SMALL ALYVENT UNDER SIDE PANNUS. ALL REMOVED ALYVENTS WERE SATURATED WITH PRULENT, BLOODY DISCHARGE. PT WAS VERY YEASTY SMELLING UNDER PANNUS. PT TOLERATED BED CHANGE. BED BATH COMPLETE AT SAME TIME. LINENS CHANGED.
--- NOTE | 2018-07-09 15:49 | NUR ---
Pt resting in her bed and states she feels a bit better after having a bed bath, being repoistioned, exercising and using her IS and accupella. Pt now visiting with her son and boyfriend and is watching tv. She staets her pain level is now "better".
--- NOTE | 2018-07-09 16:52 | NUR ---
Pt resting in her bed and she states she is "alright". Sat on RA is 92% at this time.
--- NOTE | 2018-07-09 16:59 | NUR ---
SPOKE WITH PATIENT IN ROOM WHO STATES SHE RECEIVED A PHONE CALL FROM [facility] AND SHE GAVE THEM HER INFORMATION. SPOKE WITH WIND TURBINE PERFORMANCE ENGINEER AT [facility]. SHE HAS SUBMITTING CLINICALS TO NURSING. SHE WILL CALL [facility] AND SPEAK WITH DAYWORKER. SHE STATES THEY CAN PROBABLY ACCEPT PATIENT TOMORROW. CLINICALS AND SNF PACKET COMPLETED AND WITH CHART AT NURSES STATION. DISCUSSED WITH MARIVEL MACIAS FOR POSSIBLE DISCHARGE TOMORROW.
--- NOTE | 2018-07-09 17:41 | NUR ---
PT refused to get up in the chair everytime she was asked this shift.
--- NOTE | 2018-07-09 18:13 | NUR ---
PT REFUSED TO GET INTO THE CHAIR TODAY. SEVERAL ALLVYEN DRESSING WERE REPLACED THEY WERE WET WITH DRAINAGE AND COMING OFF. PT HAD A BOUT OF N/V THIS SHIFT WITH 10 ML OF EMESIS, PT STATES SHE BELIVES IT IS DUE TO THE TYLENOL, PT INSTUCTED THAT SHE MAY DECLINE THE MEDICATION IF SHE DESIRES.
--- NOTE | 2018-07-09 18:23 | NUR ---
THE RN JOHN AND LYNNETTE SARMIENTO ALONG WITH THIS PRECISION PRINTING WORKER ROLLED AND CLEANED THE PATIENT. THE RN PUT NEW BANDAGES ON THE PATIENT WHILE WE WERE GIVING HER A BED BATH. THE LINENS WERE ALSO CHANGED.
--- NOTE | 2018-07-09 19:01 | NUR ---
RECIEVED REPORT FROM EDNA MACIAS. PATIENT LAYING AWAKE IN BED WATCHING TV. DINNER TRAY REMOVED FROM ROOM. CALL LIGHT WITHIN REACH. WHITE BOARD UPDATED. NO MORE NEEDS AT THIS TIME.
--- NOTE | 2018-07-09 21:49 | NUR ---
ASSESSMENT COMPLETE, REFER TO ASSESSMENT. PATIENT REPORTS "8/10" PAIN IN RIGHT FOOT AND RIGHT MIDDLE FINGER, PRN PAIN MEDICATION ADMINISTERED PER MAY ORDER. PATIENT REQUESTING PRN MEDICATION FOR SLEEP, PRN SLEEP MEDICATION ADMINISTERED PER MAY ORDER. PATIENT REFUSED SCHEDULED TYLENOL, DUE TO PATIENT REPORTING AN UPSET STOMACH AFTER RECIEVING SUCH MEDICATION PREVIOUSLY. UNABLE TO VISUALIZE PATIENT'S BACKSIDE PATIENT REFUSED. MIDLINE ASSESSED, GOOD BLOOD RETURN, HEP LOCKED. SCHEDULED NYSTATIN POWERDER APPLIED PER ORDER, SMALL TOWELS PLACED UNDERNEATH LEFT AND RIGHT BREASTS. DRESSING ON RLE IS CDI. NO SIGNS OF WEEPING IN EXTREMITIES. CATHETER CARE PERFORMED. CALL LIGHT WITHIN REACH. INCENTIVE SPIROMETER AT BEDSIDE, PATIENT REPORTS USING SUCH DEVICE. NO MORE NEEDS AT THIS TIME. PILLOW UNDERNEATH BLE. ALLYVEN ON RIGHT ELBOW IS CDI.
--- NOTE | 2018-07-09 22:03 | NUR ---
CHARGE NURSE ROUNDING NOTE: AWAKE, WATCHING TV, NO C/O PAIN. NO REQUESTS. ROOM AIR, F/C PATENT, LEGS ELEVATED IN PILLOWS. CALL LIGHT AT HANDS REACH.
--- NOTE | 2018-07-10 01:14 | NUR ---
ROUNDED ON PATIENT RESTING IN BED WITH EYES CLOSED, RESPIRATORY RATE IS EVEN AND UNLABORED. CPOX, WNL. NO SIGNS OF TENSING OR GRIMACING. CALL LIGHT WITHIN REACH. NO MORE NEEDS AT THIS TIME.
--- NOTE | 2018-07-10 02:45 | NUR ---
ROUNDED ON PATIENT RESTING IN BED WITH EYES CLOSED, RESPIRATORY RATE IS EVEN AND UNLABORED. CPOX, WNL. CALL LIGHT WITHIN REACH.
--- NOTE | 2018-07-10 03:24 | NUR ---
INQUIRED ABOUT PATIENT'S ORDER FOR CONTINOUS PULSE OX. DR. MCDONNELL STATED TO DISCONTINUE CONTINOUS PULSE OX AND TO HAVE PATIENT SPOT CHECKED. VERIFIED ORDER THROUGH READ BACK METHOD.
--- NOTE | 2018-07-10 05:04 | NUR ---
ASSESSMENT COMPLETE, REFER TO ASSESSMENT. PATIENT DENIES HAVING ANY PAIN, SOB, OR DIFFICULTY BREATHING. DRESSING ON RLE IS CDI, NO NEW DRAINAGE NOTED. ALLYVEN ON RIGHT ELBOW IS CDI, NO NEW DRAINAGE. BLE ELEVATED ON PILLOWS. PATIENT REMOVED FROM CPOX PER ORDER. RIOS CATHETER EMPTIED. UNABLE TO VISUALIZE PATIENT'S BACKSIDE PATIENT REFUSED AT THIS TIME. CALL LIGHT WITHIN REACH. NO MORE NEEDS AT THIS TIME.
--- NOTE | 2018-07-10 06:01 | NUR ---
PATIENT SLEPT WELL THROUGHOUT THE NIGHT. MIDLINE, GOOD BLOOD RETURN. DRESSING ON RLE IS CDI. ALLYVEN PRESENT ON RIGHT ELBOW, CDI, NO NEW DRAINAGE. UNABLE TO VISUALIZE POSTERIOR SIDE OF PATIENT PATIENT REFUSED TO ALLOW THIS RN TO ASSESS. BARIATRIC BED. PATIENT MOSTLY PLEASANT DURING INTERACTIONS. RIOS CATHETER DRAINING. PATIENT REPORTED NAUSEA X1, PATIENT REFUSED PRN NAUSEA MEDICATION. PRN SLEEP MEDICATION X1. PRN PAIN MEDICATION X1. BLE ELEVATED ON PILLOW. INCENTIVE SPIROMETER AND ACAPELLA AT BEDSIDE. ROOM AIR.
--- NOTE | 2018-07-10 06:45 | NUR ---
ROUNDED ON PATIENT RESTING AWAKE IN BED. MEDICATIONS ADMINISTERED PER MAY ORDER. PATIENT HEP LOCKED. PATIENT REPORTS "8/10" PAIN IN RIGHT FOOT AND RIGHT MIDDLE FINGER, PRN PAIN MEDICATION ADMINISTERED PER MAY ORDER. CALL LIGHT WITHIN REACH. NO MORE NEEDS AT THIS TIME.
--- NOTE | 2018-07-10 08:00 | NUR ---
PT RESTING IN BED. PT ON ROOM AIR, LUNG SOUNDS CLEAR. PT REPORTING PAIN 8/10 TO HANDS AND RIGHT FOOT. PT COMPLAINT OF NAUSEA, GIVEN 4MG IV ZOFRAN, MIDLINE HEP LOCKED. PT WITH DECREASED APPETITE, REFUSING BREAKFAST. BOWEL TONES ACTIVE, SMALL BM THIS AM. PT WITH RIOS CATH DRAINING YELLOW URINE, QS. CMS INTACT, BLE WITH EDEMA 2+, PULSES PALPABLE. PT WITH DRESSING TO RLE, CDI. DISCUSSED PLAN FOR SHOWER AND DRESSING CHANGE TODAY, PT WITH HIGH ANXIETY ABOUT SHOWER. PT DENIES OTHER NEEDS AT THIS TIME.
--- NOTE | 2018-07-10 08:41 | NUR ---
DISCUSSED DRESING CHANGE AND BOOT WITH DR. SALDANA, VERBAL ORDER TO KEEP PRESSURE DRESSING, DO NOT APPLY BOOT. ORDER TO MAKE FOLLOW UP APPOINTMENT WITH DR. SALDANA FOR THURSDAY OR THURSDAY FOR DRESSING CHANGE.
--- NOTE | 2018-07-10 09:39 | NUR ---
PT IS VERY DEMANDING AND REFUSES PERSONAL CARE.
--- NOTE | 2018-07-10 11:41 | NUR ---
ASSISTED RN IN GIVING PATIENT A SHOWER. NUNU TRANSFERED FROM BED TO SHOWER CHAIR AND BACK TO BED, 3PA NUNU. LINENS CHANGED. WARM BLANKET GIVEN. CALL LIGHT IN REACH. NO FURTHER NEEDS AT THIS TIME.
--- NOTE | 2018-07-10 11:42 | NUR ---
PT NUNU LIFTED TO SHOWER CHAIR, SHOWER COMPLETED. DRESSING CHANGE TO RLE COMPLETED, WOUND TO UPPER LOPEZ WITH SUTURES IN PLACE, MEDIAL 2 SUTURES DEEP IN WOUND, SKIN ALONG LOWER LEG MOIST, MACERATED, DR. MCDONNELL TO BEDSIDE TO ASSESS WOUND. WOUND REDRESSED WITH MEPILEX, ABD, CAST PADDING AND COBAND. ALLEVYN REAPPLIED TO COCCYX, RIGHT LOWER PANNIS, RIGHT BREAST. NYSTATIN POWDER APPLIED TO PANNIS AND UNDER BREASTS.
--- NOTE | 2018-07-10 12:29 | NUR ---
PT RESTIGN IN BED, EATING CRACKERS, PT DECLINING LUNCH AT THIS TIME. PT REFUSED CARAFATE. NYSTATIN POWDER APPLIED TO GROIN. RIGHT LEG CMS INTACT, PULSE STRONG. PT DENIES OTHER NEEDS AT THIS TIME.
--- NOTE | 2018-07-10 12:47 | NUR ---
PT CALLED FOR PAIN MEDICATIONS. THIS RN WENT TO GIVE PAIN MEDS TO PT. PT STATED THAT SHE "WANTED THEM LEFT HERE". RN ADVISED THAT I COULD NOT LEAVE NARCOTICS AT BEDSIDE, PT GOT UPSET AND SAID "THE OTHER GIRL DID!". I EXPLAINED THAT I COULD NOT LEAVE NARCOTICS AND IF SHE WAS NOT READY TO TAKE THEM, THEN I WOULD RETURN THEM AND SHE CAN CALL WHEN SHE WAS READY TO ACTUALLY TAKE THEM.
--- NOTE | 2018-07-10 12:55 | NUR ---
PT CALLED BACK AND STATED THAT SHE WOULD TAKE THE TRAMADOL NOW. COLLEEN LOPEZ AND COLLEEN CUETO HAD RETURNED THE ORIGINAL DOSE. COLLEEN LOPEZ PULLED ANOTHER DOSE OUT OF PYXIS AND ADMINISTERED.
--- NOTE | 2018-07-10 13:00 | NUR ---
RN ADJUSTED LEFT LEG APROX 1 CM. PT FORCED HERSELF TO GAG AND THROW UP RIGHT AFTER TAKING TRAMADOL. RN DID NOT SEE PILLS IN BILE LOOKING EMESIS.
--- NOTE | 2018-07-10 14:07 | NUR ---
PATIENT IN BED, BEDSIDE. FRESH WATER GIVEN. CALL LIGHT IN REACH. NO FURTHER NEEDS AT THIS TIME.
--- NOTE | 2018-07-10 16:51 | NUR ---
PT ON ROOM AIR, LUNG SOUNDS CLEAR. PT NUNU LIFTED TO SHOWER, DRESSING CHANGE COMPLETED TO RLE AND ALL ALLEVYNS, NEXT DRESSING CHANGE ON THURSDAY. PT WITH RIOS CATH, QS. POOR APPETITE, ANUSEA AND VOMITING TODAY, ZOFRAN X1, PHENERGAN X1, DOXYCYCLINE DISCONTINUED. CMS INTACT, LEGS ELEVATED ON PILLOW. MIDLINE TO LEFT ARM, HEP LOCKED. PAIN CONTROLLED WITH TYLENOL AND ULTRAM.
--- NOTE | 2018-07-10 17:15 | NUR ---
PT REFUSING CARAFATE, EDUCATED ON PURPOSE OF MEDICATION, BUT CONTINUES TO REFUSE. PT CONCERNED THAT HOME METFORMIN HAS NOT BEEN STARTED. DISCUSSED WITH DR. MCDONNELL, ORDERED TO DC CARAFATE, NO ORDER TO START METFORMIN AT THIS TIME.
--- NOTE | 2018-07-10 18:07 | NUR ---
PATIENT IN BED WATCHING TV. FRESH WATER GIVEN. CALL LIGHT IN REACH. NO FURTHER NEEDS AT THIS TIME.
--- NOTE | 2018-07-10 20:46 | NUR ---
PT HOB ELEVATED. ON ROOM AIR. HELPED WITH ASSESSMENT, DECREASED REDNESS NOTED IN ABD. RASH/REDNESS PRESENT NOT FROM BELOW UMBILICAL HERNIA AREA TO JEF AREA, DECREASE REDNEDD COLORING TOO. DECREASED EDEMA OF ABD-PERIAREA PRESENT. 2+ PITTING. BOTH LEGS DECREASED EDEMA 3+ BOTH LEGS, PITTING, DRY. ELEVATED W PILLOWS. DRESSING R LEG. F/C PATENT, DRAINING CLEAR URINE. ALLEVYN DRESSING R ELBOW PRESENT. DECLINES TO HAVE RN ASSESS LOWER BACK-JEF AREA-THIGH AREAS. PLEASANT. ON FLUID RESTRICTION 1600 CC . TOLERATING WELL. NO C/O N/V AT THIS TIME. CONTINUE TO HAVE FLAT AND IRRITABLE AFFECT. WILL CONTINUE TO REINFORCE PROCEDURES AND SKIN SAFETY. SHE DECLINES TO BE TURNED OR HAVE JEF AREA ASSESSED.
--- NOTE | 2018-07-10 21:23 | NUR ---
ROUNDED CHARGE. PATIENT IS RESTING IN BED. PATIENT COMPLAINS OF STAFF COMING IN AND OUT OF THE ROOM. PATIENT REASSURED THAT WE ARE CLUSTERING CARE TO ALLOW HER TO REST. PATIENT STATED "OK CAN EVERYONE GET OUT NOW". PATIENTS ROOM LEFT BY ALL STAFF. CALL LIGHT IN REACH.
--- NOTE | 2018-07-10 23:02 | NUR ---
V/S AND I&O DONE AND CHARTED.
--- NOTE | 2018-07-10 23:11 | NUR ---
awake, no requests, no c/o upset stomach, calll ight ast bedside
--- NOTE | 2018-07-10 23:59 | NUR ---
HOB ELEVATED. NO C/O PAIN, ROOM AIR, MIDLINE LINE INTACT. CALL LIGHT AT BEDSIDE, PT ON FLUID RESTRICTIONS, TOLERATING WELL, LE DRESSING R LEG, BOTH LEGS ELEVTED IN PILLOWS.
--- NOTE | 2018-07-11 03:50 | NUR ---
RESTING, EYES CLOSED, NO DISTRESS, CALL LIGHT AT BEDSIDE, PT ON BARIATRIC BED
--- NOTE | 2018-07-11 05:41 | NUR ---
HAS SLEPT THIS SHIFT. IMPROVED AFFECT. NO N/V THIS SHIFT. MIDLINE LINE INTACT/PATENT. DECREASED REDNESS OVER LOW ABD AND JEF AREA. DECREASED EDEMA NOTED OF LEGS, R LEG DRESSING INTACT, GOOD CMS. LEGS ELEVATED WITH PILLOWS. F/C PATENT. CONTINUES ON LASIX. CONTINUES TO DECLINE TO HAVE NURSES ASSESS JEF AREA AT THIS TIME. PT IS A NUNU LIFT. WAS MEDICATED WITH ULTRAM PER PAIN. MED EFFECTIVE
--- NOTE | 2018-07-11 06:48 | NUR ---
MIDLINE DRESSING CHANGES, CAP FLOW CHANGED, PROCEDURE EXPLAINED, COOPERAIVE. PT IMPROVED AFFECT PRESENT. DECREAED EDEMA LEGS. F/C PATENT CONTINUES ON FLUID RESTRICTION
--- NOTE | 2018-07-11 07:57 | NUR ---
REPORT RECEIVED FROM PUBLIC RELATIONS INTERN RN. PT IN BED WITH HOB ELEVATED TO 45 DEGREES. REFUSED BREAKFAST THIS MORNING STATING, "I DONT EAT BREAKFAST". DENEIS NEEDS AND PAIN, CALL LIGHT IN REACH.
--- NOTE | 2018-07-11 11:07 | NUR ---
PAIN IN RIGHT FINGER D/T GOUT REPORTED 10/10 AFTER TYLENOL. PRN PAIN MEDICATION GIVEN. PT REQUESTING TO BE LEFT ALONE UNTIL GETTING UP TO CHAIR FOR [facility] HAT 1200. DOOR CLOSED, CALL LIGHT IN REACH. DENIES FURTHER NEEDS.
--- NOTE | 2018-07-11 12:12 | NUR ---
THIS NURSE INTO ROOM TO HELP PT GET UP TO CHAIR FOR LUNCH PER PT REQUEST. PT WAS RUDE AND REFUSED TO GET UP TO CHAIR FOR LUNCH STATING,"IM ALREADY EATING, I DONT WANT TO GET UP". PT IN BED WITH HOB ELEVATED, PT EATING LUNCH. CALL LIGHT IN REACH. DENIES FURTHER NEEDS AT THIS TIME.
--- NOTE | 2018-07-11 12:35 | NUR ---
PHYSICAL THERAPY IN TO WORK WITH PT. PT PLACED IN CHAIR POSITION IN BED AND AGREED TO DO BED EXERCISES.
--- NOTE | 2018-07-11 13:35 | NUR ---
PT REMOVED FROM CHAIR POSITION. LEGS ELEVATED IN BED. REPORTED SOME NAUSEA. 4MG ZOFRAN GIVEN. EMISIS BACK PROVIDED. NO EMISIS AT THIS TIME. REPORTS ZOFRAN IS HELPING. CALL LIGHT IN REACH. DENIES FURTHER NEEDS.
--- NOTE | 2018-07-11 17:00 | NUR ---
PT SAT UP IN BED FOR DINNER. REFUSED TO SIT IN CHAIR. AT BEDSIDE. CALL LIGHT IN REACH. DENIES NEEDS.
--- NOTE | 2018-07-11 19:44 | NUR ---
RECIEVED REPORT FROM VARGHESE MACIAS, PATIENT RESTING AWAKE IN BED. WHITE BOARD UPDATED. CALL LIGHT WITHIN REACH. PATIENT DENIES ANY NEEDS AT THIS TIME.
--- NOTE | 2018-07-11 22:00 | NUR ---
ASSESSMENT COMPLETE, REFER TO ASSESSMENT. MEDICATION ADMINISTERED PER MAY ORDER. PATIENT REPORTS "9-10/10" PAIN IN FINGERS, SCHEDULED PAIN MEDICATION ADMINISTERED PER MAY ORDER. MIDLINE ASSESSED, GOOD BLOOD RETURN, HEP LOCKED PER ORDER. SCHEDULED NYSTATIN POWDER APPLIED PER ORDER TO PANNIS REGION AND UNDERNEATH BREASTS. CATHETER CARE PERFORMED. ALLYVEN DRESSING ON RIGHT ELBOW IS CDI, NO NEW DRAINAGE. DRESSING ON RLE IS CDI, NO NEW DRAINAGE. BLE ELEVATED ON PILLOWS. UNABLE TO ASSESS BACKSIDE PATIENT REFUSED TO ALLOW THIS RN TO DO SO. PATIENT COMPLAINED OF NAUSEA AND STARTED TO DRY HEAVE, PRN NAUSEA MEDICATION ADMINISTERED. CALL LIGHT WITHIN REACH. NO MORE NEEDS AT THIS TIME.
--- NOTE | 2018-07-12 00:22 | NUR ---
ROUNDED ON PATIENT RESTING IN BED WITH EYES CLOSED, RESPIRATORY RATE IS EVEN AND UNLABORED. CALL LIGHT WITHIN REACH.
--- NOTE | 2018-07-12 02:41 | NUR ---
ROUNDED ON PATIENT RESTING IN BED WITH EYES CLOSED, RESPIRATORY RATE IS EVEN AND UNLABORED. NO SIGNS OF DISTRESS. CALL LIGHT WITHIN REACH.
--- NOTE | 2018-07-12 03:55 | NUR ---
Patient needed to use bedpan, COLLEEN Blanco assisted me. Patient asked us to leave. call light withiin reach as well as bedside table.
--- NOTE | 2018-07-12 04:34 | NUR ---
ASSESSMENT COMPLETE, REFER TO ASSESSMENT. PATIENT REPORTS "9/10" PAIN IN "FINGERS", PATIENT DENIED WANTING PRN PAIN MEDICATION PATIENT IS REPORTING NAUSEA AND OCCASIONALLY DRY HEAVING, EMESIS BAG PROVIDED. PRN NAUSEA MEDICATION ADMINISTERED PER MAR ORDER. X4 NURSING PERSONNEL ASSISTED PATIENT OFF BEDPAN, X1 BM. ALLYVENS ON BOTTOM/COCCYX CDI, NO NEW DRAINAGE. WOUND ON BACK OF RIGHT UPPER THIGH SHOWED SCANT AMOUNT OF DRAINAGE. SEROUS DRAINAGE NOTED ON THE UPPER PORTION OF THE DRESSING ON RLE, NEW CHUCKS PLACED UNDER RLE. BLE EXTREMITIES ELEVATED ON PILLOWS. ALLYVEN ON RIGHT ELBOW IS CDI, NO NEW DRAINAGE. PATIENT USED INCENTIVE SPIROMETER AND ACAPELLA DEVICE AFTER PRN NAUSEA MEDICATION ADMINISTERED. CALL LIGHT WITHIN REACH. PATIENT DENIES ANY MORE NEEDS AT THIS TIME.
--- NOTE | 2018-07-12 06:33 | NUR ---
ROUNDED ON PATIENT FOR MEDICATION ADMINISTRATION. PATIENT REPORTS "9/10" PAIN IN FINGERS, PRN PAIN MEDICATION ADMINISTERED PER MAY ORDER. SCHEDULED MEDICATION ADMINISTERED PER MAY ORDER. GOOD BLOOD RETURN, MIDLINE HEP LOCKED. CALL LIGHT WITHIN REACH. NO MORE NEEDS AT THIS TIME.
--- NOTE | 2018-07-12 07:20 | NUR ---
RECIEVED BEDSIDE REPORT FROM COLLEEN ALCALA. PT SLEEPING SOUNDLY. CALL BUTTON IN REACH.
--- NOTE | 2018-07-12 07:50 | NUR ---
PATIENT IN BED RESTING WITH EYES CLOSED. CALL LIGHT IN REACH. NO FURTHER NEEDS AT THIS TIME.
--- NOTE | 2018-07-12 08:20 | NUR ---
PT REFUSED TO ALLOW THIS RN TO APPLY NYSTATIN POWDER TO UNDER BREASTS AND PANUS. ALSO REFUSED SCHEDULED TYLENOL, REPORTED THAT IT MAKES HER STOMACH FEEL UPSET. PT REFUSED TO TURN OVER SO THIS RN COULD ASSESS HER BACK, BUTTOCKS. WILL CONTINUE TO ATTEMPT.
--- NOTE | 2018-07-12 09:27 | NUR ---
PATIENT IN BED RESTING WITH EYES CLOSED. CALL LIGHT IN REACH. NO FURTHER NEEDS AT THIS TIME.
--- NOTE | 2018-07-12 11:26 | NUR ---
PT ENCOURAGED TO ALLOW STAFF TO ASSIST HER IN REPOSITIONING EVERY 2 HOURS, HAD ALSO ENCOURAGED THIS THIS AM AT 0900. PT DECLINED AGAIN. WILL CONTINUE TO ENCOURAGE REPOSITIONING AND EDUCATED REGARDING THE NEED FOR REPOSITIONING FOR SKIN HEALTH.
[2018-07-12] MEDS ORDERED: FAMOTIDINE20 MG PO (11:33)
[2018-07-12] MEDS ORDERED: MELATONIN3 MG PO (11:34)
[2018-07-12] MEDS ORDERED: LEVOTHYROXINE112 MCG PO (11:34)
[2018-07-12] MEDS ORDERED: NYSTOP60 GM TOP (11:34)
[2018-07-12] MEDS ORDERED: NEPHRO-VITE RX1 EACH PO (11:34)
[2018-07-12] MEDS ORDERED: ALLOPURINOL100 MG PO (11:34)
--- NOTE | 2018-07-12 12:19 | NUR ---
FAXED ALL REQUESTED PAPERS TO [facility], RECEIVED THE FAX CONFIRMATION. SENT THEM THE DOCTOR ORDERS AND THAT ALSO WENT THROUGH.
[2018-07-12] MEDS ORDERED: CLINDAMYCIN HC300 MG PO (12:39)
[2018-07-12] MEDS ORDERED: TRAMADOL HCL50 MG PO (13:04)
--- NOTE | 2018-07-12 13:32 | NUR ---
MID-LINE REMOVED WNL INTACT FROM PLACEMENT. PT TOLERATED WELL. PRESSURE DRESSING PLACED TO SITE.
--- NOTE | 2018-07-12 14:39 | NUR ---
CALLED REPORT TO NURSING STAFF AT [facility]. QUESTIONS ASKED AND ANSWERED. PT TRANPORTED TO [facility] VIA NON EMERGENT AMBULANCE TRANSPORT. LEFT FLOOR AT 1402.
== END 2018-07-12 14:02 | DRG 292 ==
LOC: ED 22:29 → MS 22:31
PROVIDERS: ADMIT Internal Medicine
PROC: 05HY33Z Insertion of Infusion Device into Upper Vein, Percutaneous Approach (ICD-10-PCS; principal; 2018-07-07 15:00)
DX: I11.0 Hypertensive heart disease with heart failure (principal); Z68.43 Body mass index [BMI] 50.0-59.9, adult; F11.20 Opioid dependence, uncomplicated; I50.33 Acute on chronic diastolic (congestive) heart failure; E03.9 Hypothyroidism, unspecified; I48.2 Chronic atrial fibrillation; E66.01 Morbid (severe) obesity due to excess calories; S82.61XA Displaced fracture of lateral malleolus of right fibula, initial encounter for closed fracture; W18.30XA Fall on same level, unspecified, initial encounter; S81.811A Laceration without foreign body, right lower leg, initial encounter; E11.9 Type 2 diabetes mellitus without complications; G89.4 Chronic pain syndrome; I35.0 Nonrheumatic aortic (valve) stenosis; I27.20 Pulmonary hypertension, unspecified; I87.2 Venous insufficiency (chronic) (peripheral); L30.4 Erythema intertrigo; L89.890 Pressure ulcer of other site, unstageable; D52.9 Folate deficiency anemia, unspecified; K76.0 Fatty (change of) liver, not elsewhere classified; Z88.5 Allergy status to narcotic agent; Z91.14 Patient's other noncompliance with medication regimen; Z88.0 Allergy status to penicillin; Z88.2 Allergy status to sulfonamides; Z91.041 Radiographic dye allergy status; Z79.84 Long term (current) use of oral hypoglycemic drugs; Z79.1 Long term (current) use of non-steroidal anti-inflammatories (NSAID); Z79.02 Long term (current) use of antithrombotics/antiplatelets; Z79.899 Other long term (current) drug therapy
CPT/HCPCS: 12035; 36415; 36569; 51702; 71045; 72170; 73552; 73590; 73610; 73700; 76705; 80048; 80053; 81001; 82607; 82728; 82746; 83036; 83540; 83735; 83880; 84439; 84443; 84466; 84484; 85025; 85610; 85730; 86850; 86900; 86901; 93005; 93010; 93306; 94667; 94668; 94762; 97110; 97163; 97167; 97530; 97535; 99285-25; J2405; J2550; J3475; J7030